=== PATIENT | female | born 1955 | race Caucasian/White ===

== ENCOUNTER 2024-09-22 13:56 | Emergency (ER) | payer MEDICARE, SELFPAY ==
[2024-09-22] VITALS (7 sets, daily range): BP systolic 120–138; BP diastolic 76–92; PULSE 82–108; RESP 18–20; TEMP 36.4; O2SAT 96–100; BMI 21.6
[2024-09-22 15:18] LABS: Bilirubin Urine Negative (Negative); Blood Urine Negative (Negative); Glucose Urine UA Negative (Normal); Ketones Urine Negative (Negative); Leukocyte Esterase Urine Negative (Negative); Nitrate Urine Negative (Negative); Protein Urine Negative (Negative); Specific Gravity, Urine 1.006 (1.005-1.030); Urine Appearance Clear (CLEAR); Urine Color Yellow (Yellow); Urobilinogen Urine 0.2 mg/dL (Negative)
[2024-09-22 15:20] LABS: Add Urine Microscopic? YES; Bacteria Urine None Seen /hpf; Hyaline Casts Urine 0-4 /lpf; RBC Urine 0-2 /hpf (0-2); Squamous Epithelial Cell Urine 0-5 /hpf (0-5); WBC Urine 0-5 /hpf (0-5)
[2024-09-22 15:28] LABS: Basophils % 0.5 %; Eosinophils # 0.1 10^3/uL (0.0-0.8); Eosinophils % 0.7 %; Hematocrit 40.4 % (36-47); Lymphocytes # 2.5 10^3/uL (0.8-4.8); Lymphocytes % 32.8 %; Mean Corpuscular HGB Conc 34.4 g/dL (30-55); Mean Corpuscular Hemoglobin 32.1 pg (27-33); Mean Corpuscular Volume 93.3 fl (85-98); Mean Platelet Volume 9.6 fL (7.4-10.4); Monocytes # 0.7 10^3/uL (0.2-0.9); Monocytes % 9.7 %; Neutrophils # 4.22 10^3/uL (1.8-7.7); Neutrophils % 56.2 %; Nucleated Red Blood Cells % 0 %; Platelet Count 244 10^3/cmm (157-399); Red Blood Count 4.33 10^6/uL (3.85-5.65); Red Cell Distribution Width 12.1 % (12.1-15.1); White Blood Count 7.52 10^3/uL (3.29-11.43)
--- NOTE | 2024-09-22 15:28 | ED_ITS ---
HPI - Female Genitourinary 2 General: Chief complaint: Urogenital-Female Stated complaint: Low back pian Time Seen by Provider: 09/22/24 15:16 History of Present Illness: 69-year-old female presents emergency ro om complaining of left-sided flank pain. She reports she has a heavy history of kidney stones. Denies any dysuria urgency or frequency. No hematuria. No fever sweats or chills. Associated symptoms: Deny abdominal pain Related Data Previous Rx's Medication Instructions Recorded hydrocodone 5 mg-acetaminophen 325 1 tab PO Q6H PRN pain #25 tabs 09/22/24 mg tablet prednisone 20 mg tablet 20 mg PO TID #15 tabs 09/22/24 tizanidine 4 mg tablet 4 mg PO Q6H PRN muscle spasticity 09/22/24 #20 tabs Allergies Allergy/AdvReac Type Severity Reaction Status Date / Time No Known Allergies Allergy Verified 09/22/24 14:47 Review of Systems 2 Const: Denies: fever(s) or chills Card: Denies: chest pain Resp: Denies: dyspnea GI: Denies: abdominal pain : Reports: flank pain; Denies: dysuria, urinary frequency or urinary urgency Musc: Denies: neck pain or back pain Skin/Breast: Denies: rash Physical Exam 2 Const: GENERAL APPEARANCE: cooperative ORIENTATION/CONSCIOUSNESS: Yes awake, Yes oriented to person, Yes oriented to place and Yes oriented to time HENMT: COMMON NORMALS: normocephalic, atraumatic and hearing grossly normal bilaterally HEAD & SCALP: normocephalic and atraumatic Resp: COMMON NORMALS: normal respiratory effort, No retractions, No use of accessory muscles and clear to auscultation bilaterally AUSCULTATION: clear to auscultation bilaterally Cardio: COMMON NORMALS: regular rate, regular rhythm and No murmurs present (Cardio) RATE: regular rate RHYTHM: regular rhythm GI: COMMON NORMALS: Soft to palpation and No hepatosplenomegaly present A USCULTATION: Yes normoactive bowel sounds PALPATION: Yes Soft to palpation, No Tenderness to palpation present (GI), No Guarding due to palpation present (GI) and Yes No hepatosplenomegaly present Extremity: COMMON NORMALS: normal to inspection, capillary refill normal, no clubbing, cyanosis or edema, no calf tenderness and no pedal edema Neuro: SENSORIUM/ORIENTATION: Yes oriented to person, Yes oriented to place and Yes oriented to time Skin: COMMON NORMALS: no rashes or lesions noted GENERAL SKIN EXAM: no rashes or lesions noted Course 2 Vital Signs: Vital signs: Vital Signs Temperature 97.5 F L 09/22/24 14:42 Pulse Rate 108 H 09/22/24 18:06 Respiratory Rate 20 H 09/22/24 17:54 Blood Pressure 120/76 09/22/24 18:06 Pulse Oximetry 98 09/22/24 18:06 Oxygen Delivery Me thod Room Air 09/22/24 14:42 MDM - Female Medical Decision Making No leukocytosis urine does not show any signs of infection or hematuria. CT for renal stone protocol does not find any signs of ureteral lithiasis. Gallbladder and colon are also normal. Bladder is also normal there is no lymphadenopathy noted. Based on findings suspect pain is more musculoskeletal based. Patient discharged home with prednisone taper hydrocodone as needed and tizanidine as needed Medical Records I reviewed the patient's medical records. Lab Data I reviewed the patient's lab results. 09/22/24 15:23 09/22/24 15:23 Radiology Impressions Abdomen/Pelvis CT 09/22/24 15:36 IMPRESSION: No acute findings. Laboratory Results WBC 7.52 10^3/uL (3.29-11.43) 09/22/24 15:23 RBC 4.33 10^6/uL (3.85-5.65) 09/22/24 15:23 Hgb 13.90 g/dL (11.27-16.99) 09/22/24 15:23 Hct 40.4 % (36-47) 09/22/24 15:23 MCV 93.3 fl (85-98) 09/22/24 15:23 MCH 32.1 pg (27-33) 09/22/24 15:23 MCHC 34.4 g/dL (30-55) 09/22/24 15:23 RDW 12.1 % (12.1-15.1) 09/22/24 15:23 Plt Count 244 10^3/cmm (157-399) 09/22/24 15:23 MPV 9.6 fL (7.4-10.4) 09/22/24 15:23 Neut % (Auto) 56.2 % 09/22/24 15:23 Lymph % (Auto) 32.8 % 09/22/24 15:23 [place] % (Auto) 9.7 % 09/22/24 15:23 Eos % (Auto) 0.7 % 09/22/24 15:23 Baso % (Auto) 0.5 % 09/22/24 15:23 Neut # (Auto) 4.22 10^3/uL (1.8-7.7) 09/22/24 15:23 Lymph # (Auto) 2.5 10^3/uL (0.8-4.8) 09/22/24 15:23 [place] # (Auto) 0.7 10^3/uL (0.2-0.9) 09/22/24 15:23 Eos # (Auto) 0.1 10^3/uL (0.0-0.8) 09/22/24 15:23 Baso # (Auto) 0.0 10^3/uL (0.0-0.1) 09/22/24 15:23 Nucleated RBC % (auto) 0 % 09/22/24 15: Nucleated RBCs # 0.0 /100WBC 09/22/24 15:23 Sodium 142 mmol/L (136-145) 09/22/24 15:23 Potassium 4.2 mmol/L (3.5-5.1) 09/22/24 15:23 Chloride 106 mmol/L (98-107) 09/22/24 15:23 Carbon Dioxide 20 mmol/L (22-29) L 09/22/24 15:23 Anion Gap 20.2 (5-19) H 09/22/24 15:23 BUN 13 mg/dL (8-23) 09/22/24 15:23 Creatinine 0.8 mg/dL (0.5-0.9) 09/22/24 15:23 GFR Calculation 71.3 mL/min (90-130) L 09/22/24 15:23 Glucose 109 mg/dL (65-115) 09/22/24 15:23 Calculated Osmolality 295 mOsm/kg (285-295) 09/22/24 15:23 Calcium 10.0 mg/dL (8.5-10.5) 09/22/24 15:23 Total Bilirubin 0.6 mg/dL (0.15-1.2) 09/22/24 15: AST 5 U/L (0-32) 09/22/24 15: ALT 45 U/L (0-33) H 09/22/24 15: Alkaline Phosphatase 83 U/L (35-105) 09/22/24 15:23 Total Protein 7.7 g/dL (6.6-8.7) 09/22/24 15: Albumin 4.7 g/dL (3.5-5.2) 09/22/24 15: Globulin 3.0 g/dL (1.3-4.6) 09/22/24 15:23 Urine Color Yellow (Yellow) 09/22/24 15:00 Urine Appearance Clear (CLEAR) 09/22/24 15:00 Urine pH 7.0 (5-7) 09/22/24 15:00 Ur Specific [place] 1.006 (1.005-1.030) 09/22/24 15:00 Urine Protein Negative (Negative) 09/22/24 15:00 Urine Glucose (UA) Negative (Normal) 09/22/24 15:00 Urine Ketones Negative (Negative) 09/22/24 15:00 Urine Blood Negative (Negative) 09/22/24 15:00 Urine Nitrate Negative (Negative) 09/22/24 15:00 Urine Bilirubin Negative (Negative) 09/22/24 15:00 Urine Urobilinogen 0.2 mg/dL (Negative) 09/22/24 15:00 Ur Leukocyte Esterase Negative (Negative) 09/22/24 15:00 Urine RBC 0-2 /hpf (0-2) 09/22/24 15:00 Urine WBC 0-5 /hpf (0-5) 09/22/24 15:00 Ur Squamous Epith Cells 0-5 /hpf (0-5) 09/22/24 15:00 Amorphous Sediment Not Reportable 09/22/24 15:00 Urine Bacteria None seen /hpf (NONE) 09/22/24 15:00 Hyaline Casts 0-4 /lpf H 09/22/24 15:00 All radiology interpretation(s) finalized by discharge Discharge Plan Discharge Patient Disposition: Home Clinical Impression: Back pain Condition: Stable Prescriptions: New tizanidine 4 mg tablet 4 mg PO Q6H PRN (Reason: muscle spasticity) Qty: 20 0RF Rx Instructions: do not exceed 3 doses per 24 hrs prednisone 20 mg tablet 20 mg PO TID Qty: 15 0RF Rx Instructions: 1 p.o. 3 times daily x3 days, 1 p.o. twice daily x2 days, 1 p.o. daily x2 days hydrocodone-acetaminophen 5-325 mg tablet 1 tab PO Q6H PRN (Reason: pain) Qty: 25 0RF Discharge Orders: Discharge ED (Routine); Ordered 09/22/24 Ordered By: Anil Antoine Discharge Diet: Usual diet Discharge Activity: Increase activity as tolerated Patient Instructions: Opioid Safety, Pain Management Activity Restrictions/Additional Instructions: Thank you for choosing [facility] for your healthcare needs today. It is very important that you follow up as instructed or that you return to the Emergency Department should you have concerns or if your condition changes or worsens in any way. You are seen in the emergency room for complaint of back pain. Your urine shows no signs of infection your white count is normal. Kidney and liver functions did not show any significant abnormality. On the CT there is no acute pathology demonstrated your previous surgeries including cholecystectomy appendectomy and hysterectomy. No evidence of kidney stones no evidence of obstruction no evidence of hydronephrosis (swelling of the kidney). There is no evidence of thickening of the bowel wall or bowel obstruction. Coding Level of Care Code ED [employer] for Rosy Srivastava
--- NOTE | 2024-09-22 15:36 | CTR_ITS ---
PROCEDURE INFORMATION: Exam: CT Abdomen And Pelvis Without Contrast Exam date and time: 09/22/2024 3:49 PM Age: 69 years old Clinical indication: Abdominal pain; Flank; Right; Prior surgery; Surgery date: 6+ months; Surgery type: Appy, gb, hyster; Additional info: Flank pain TECHNIQUE: Imaging protocol: Computed tomography of the abdomen and pelvis without contrast. Radiation optimization: All CT scans at this facility use at least one of these dose optimization techniques: automated exposure control; mA and/or kV adjustment per patient size (includes targeted exams where dose is matched to clinical indication); or iterative reconstruction. COMPARISON: No relevant prior studies available. RADIATION DOSE METRICS: Total DLP (mGy-cm): 404.73 FINDINGS: Liver: Normal. No mass. Gallbladder and biliary ducts: Cholecystectomy. No ductal dilation. Pancreas: Normal. No ductal dilation. Spleen: Normal. No splenomegaly. Adrenal glands: Normal. No mass. Kidneys and ureters: No calcified stones. No hydronephrosis. Stomach and bowel: Colonic diverticulosis. Moderate colonic stool burden. No obstruction. No mucosal thickening. Appendix: Appendectomy. Intraperitoneal space: Unremarkable. No free air. No significant fluid collection. Vasculature: Multiple vascular phleboliths noted. No abdominal aortic aneurysm. Lymph nodes: Unremarkable. No enlarged lymph nodes. Urinary bladder: Unremarkable as visualized. Reproductive: Hysterectomy. Bones/joints: No acute fracture. Soft tissues: Unremarkable. CT/CT kidney stone [id number] IMPRESSION: No acute findings.
[2024-09-22 15:44] LABS: Alanine Aminotransferase 45 U/L (0-33); Albumin Level 4.7 g/dL (3.5-5.2); Alkaline Phosphatase 83 U/L (35-105); Anion Gap 20.2 (5-19); Blood Urea Nitrogen 13 mg/dL (8-23); Carbon Dioxide 20 mmol/L (22-29); Chloride 106 mmol/L (98-107); Creatinine Clr Calc Pharmacy 61.3985; Glomerular Filtration Rate 71.3 mL/min (90-130); Glucose 109 mg/dL (65-115); Osmolality Calculated 295 mOsm/kg (285-295); Potassium 4.2 mmol/L (3.5-5.1); Sodium 142 mmol/L (136-145); Total Bilirubin 0.6 mg/dL (0.15-1.2); Total Protein 7.7 g/dL (6.6-8.7)
[2024-09-22 15:52] LABS: Aspartate Amino Transferase 5 U/L (0-32)
[2024-09-22] MEDS: ondansetron 2 mg/ML SDV 2 mL 4 MG IVP (16:01)
[2024-09-22] MEDS: morphine 4 mg/mL SDV 1 mL IVP ×2 (16:03→17:54)
[2024-09-22] MEDS: orphenadrine 30 mg/mL Inj 2 mL 60 MG IM (17:50)
== END 2024-09-22 18:06 | disposition home or self-care (01) ==
PROVIDERS: Emergency Medicine; Emergency Provider Family Medicine
DX: M54.9 Dorsalgia, unspecified (principal)
CPT/HCPCS: 74176; 80053; 81001; 85025; 96372; 96374; 96375; 96376; 99285; J2270; J2360; J2405